=== PATIENT | male | born 1975 | race African-American/Black ===

== ENCOUNTER 2016-12-22 12:27 | Emergency (ER) | payer SELFPAY ==
[~2016-12-22] VITALS: Ht 160 cm; Wt 76.2 kg
[~2016-12-22 12:27] MED LIST: AMLO10TA2 PO; ATOR10TA60 PO; HYDR25TA9 PO; NAPR500T PO; NAPR500T8 PO; TRAM-48 PO; TRAM50TA PO
[2016-12-22] MEDS ORDERED: NAPROXEN 500 MG TABLET PO STA (12:54)
[2016-12-22 12:56] VITALS: BP 149/87
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
[2016-12-22] MEDS ORDERED: HYDROcodone/APAP 5/325MG 1 TAB TABLET PO ONE (13:15)
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
[2016-12-22] MEDS ORDERED: TRAM-48 PO (13:38)
== END 2016-12-22 13:45 | disposition home or self-care (01) ==
LOC: ER 12:27
DX: S93.402A Sprain of unspecified ligament of left ankle, initial encounter (principal); S93.602A Unspecified sprain of left foot, initial encounter; I10 Essential (primary) hypertension; E78.00 Pure hypercholesterolemia, unspecified; W18.39XA Other fall on same level, initial encounter; Y93.89 Activity, other specified; Y92.89 Other specified places as the place of occurrence of the external cause; Y99.8 Other external cause status
CPT/HCPCS: 29515; 73610; 73630; 99284-25

== ENCOUNTER 2017-04-28 21:53 | Emergency (ER) | payer OTHER ==
[~2017-04-28] VITALS: Ht 162.6 cm; Wt 76.2 kg
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
[2017-04-28 22:30] LABS: BASO # 0.1 x10^3/uL (0.0-0.2); BASO % 1 % (0-3); EOS % 1 % (0-3); HEMATOCRIT 42.3 % (39.0-53.0); HEMOGLOBIN 14.5 g/dL (13.0-17.5); LYMPH # 2.1 x10^3/uL (1.0-4.8); LYMPH % 36 % (24-48); MEAN CORPUSCULAR HEMOGLOBIN 31 pg (25-35); MEAN CORPUSCULAR HGB CONC 34 g/dL (31-37); MEAN CORPUSCULAR VOLUME 92 fL (79-100); MONO % 7 % (0-9); NEUT % 56 % (31-73); PLATELET COUNT 289 x10^3/uL (140-400); RED CELL DISTRIBUTION WIDTH 13.1 % (11.5-14.5); WHITE BLOOD COUNT 5.8 x10^3/uL (4.0-11.0)
[2017-04-28] MEDS ORDERED: IV NORMAL SALINE 1000ML BAG 1,000 ML IV ONE (22:30)
[2017-04-28] MEDS ORDERED: diphenhydrAMINE 50 MG/ML VIAL IVP ONE (22:30)
[2017-04-28] MEDS ORDERED: METOCLOPRAMIDE HCL 10 MG/2 ML VIAL. IV ONE (22:30)
[2017-04-28] MEDS ORDERED: LABETALOL 20 MG/4 ML DISP.SYRIN. IVP ONE (22:30)
[2017-04-28 22:44] LABS: CALCIUM 8.7 mg/dL (8.5-10.1); GFR 100.1; POTASSIUM 3.3 mmol/L (3.5-5.1)
[2017-04-28 22:50] LABS: ALBUMIN 3.3 g/dL (3.4-5.0); DIRECT BILIRUBIN 0.1 mg/dL (0.0-0.2); TOTAL BILIRUBIN 0.3 mg/dL (0.2-1.0); TOTAL PROTEIN 7.7 g/dL (6.4-8.2)
[2017-04-28 23:14] LABS: BILIRUBIN,URINE NEGATIVE (NEG); GLUCOSE,URINE NEGATIVE (NEG); NITRITE,URINE NEGATIVE (NEG); PROTEIN,URINE NEGATIVE (NEG-TRACE)
[2017-04-28 23:19] LABS: BACTERIA,URINE 0 /HPF (0-FEW); RBC,URINE 0 /HPF (0-2); SQUAMOUS EPITHELIAL CELL,UR OCC /LPF; WBC,URINE 0 /HPF (0-4)
[2017-04-28 23:29] VITALS: BP 124/81
[2017-04-28] MEDS ORDERED: HYDR25TA9 PO (23:39)
--- NOTE | 2017-04-29 07:01 | EKG ---
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
== END 2017-04-28 23:45 | disposition home or self-care (01) ==
LOC: ER 21:53
DX: R51 Headache (principal); I10 Essential (primary) hypertension; H53.8 Other visual disturbances; E78.00 Pure hypercholesterolemia, unspecified
CPT/HCPCS: 36415; 80048; 80076; 81001; 83690; 84484; 85025; 93005; 96361; 96374; 96375; 99285; J1200; J2765; J3490; J7030

== ENCOUNTER 2017-05-12 00:25 | Emergency (ER) | payer OTHER ==
[~2017-05-12] VITALS: Ht 162.6 cm; Wt 76.2 kg
[2017-05-12 00:48] VITALS: BP 179/109
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
[2017-05-12] MEDS ORDERED: IBUPROFEN 800 MG TABLET. PO ONE (03:00)
--- NOTE | 2017-05-12 08:41 | RAD ---
EXAM: 1. Left ankle 3 views. 2. Left foot 3 views. HISTORY: Fall with left foot/ankle pain. COMPARISON: 12/22/2016. FINDINGS: There are changes of internal fixation of a chronic healed distal tibial fracture with antegrade intramedullary nail. The nail is fixed by 2 screws distally, both of which are fractured. No fragments project within the distal leg. There is likely a chronic fracture deformity of the medial malleolus. No acute fractures are seen about the ankle. Joint spaces and alignment are maintained. There are chronic fracture deformities of the ventricular and cuboid. 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 There is mild pes planus. Another chronic fracture deformity involves the 4th metatarsal neck. No acute fractures are seen. IMPRESSION: 1. No acute fracture. 2. Chronic fracture deformities of the distal tibia, medial malleolus, and mid foot/hindfoot. Associated mid foot/hindfoot posttraumatic osteoarthritis.
== END 2017-05-12 03:20 | disposition home or self-care (01) ==
LOC: ER 00:25
DX: S93.602A Unspecified sprain of left foot, initial encounter (principal); I10 Essential (primary) hypertension; E78.00 Pure hypercholesterolemia, unspecified; X58.XXXA Exposure to other specified factors, initial encounter; Y93.89 Activity, other specified; Y92.89 Other specified places as the place of occurrence of the external cause; Y99.8 Other external cause status
CPT/HCPCS: 73610; 73630; 99284

== ENCOUNTER 2017-05-26 02:18 | Emergency (ER) | payer OTHER ==
[~2017-05-26] VITALS: Ht 162.6 cm; Wt 72.6 kg
[~2017-05-26 02:18] MED LIST changes: +NAPR-683 PO; -NAPR500T PO
[2017-05-26 02:30] VITALS: BP 142/89
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
[2017-05-26] MEDS ORDERED: TRAM50TA PO (03:38)
== END 2017-05-26 03:50 | disposition home or self-care (01) ==
LOC: ER 02:18
DX: M25.572 Pain in left ankle and joints of left foot (principal); G89.29 Other chronic pain; Z98.890 Other specified postprocedural states
CPT/HCPCS: 99283

== ENCOUNTER 2018-10-15 07:18 | Emergency (ER) | payer OTHER ==
[~2018-10-15] VITALS: Ht 160 cm; Wt 78.0 kg
[~2018-10-15 07:18] MED LIST changes: -AMLO10TA2 PO; +AMLO10TA8 PO; +HYDR-2145 PO; -HYDR25TA9 PO
[2018-10-15 07:55] VITALS: BP 169/119
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
--- NOTE | 2018-10-15 08:54 | RAD ---
ANKLE LEFT 3V, FOOT LEFT 3V Clinical Indication: ROLLED ANKLE THIS MORNING. LEFT ANKLE, FOOT PAIN Comparison: Left foot, 3 views May 08, 2018. Left ankle, 3 views, May 12, 2017. Findings: Old fracture deformities of the navicular and cuboid redemonstrated. Question old fracture deformity at the base of the third proximal phalanx. No dorsal soft tissue swelling. No acute fracture is identified. Mineralization is normal. Joint spaces are maintained. Redemonstrated intramedullary low of the tibia. The 2 distal locking screws are fractured, unchanged. There are metallic fragments in the soft tissues in the region of the distal tibia. Cortical thickening of the distal tibia is stable. There is no soft tissue swelling. The proximal intramedullary low is near the lateral tibial plateau. There are 2 proximal locking screws. The ankle mortise is intact. There is no acute fracture. No ankle joint effusion is seen. IMPRESSION: No acute fracture or dislocation. Electronically signed by: Hernando Guillermo MD (10/15/2018 8:51 AM) [id number]
== END 2018-10-15 09:30 | disposition home or self-care (01) ==
LOC: ER 07:18
DX: M25.572 Pain in left ankle and joints of left foot (principal); G89.11 Acute pain due to trauma; I10 Essential (primary) hypertension; Z98.890 Other specified postprocedural states; X50.9XXA Other and unspecified overexertion or strenuous movements or postures, initial encounter; Y93.89 Activity, other specified; Y92.89 Other specified places as the place of occurrence of the external cause; Y99.8 Other external cause status
CPT/HCPCS: 73610; 73630; 99284

== ENCOUNTER 2019-04-17 15:44 | Emergency (ER) | payer OTHER ==
[~2019-04-17] VITALS: Ht 162.6 cm; Wt 76.2 kg
[2019-04-17 15:56] VITALS: BP 170/112
[2019-04-17] MEDS ORDERED: BACI28.34 TP (16:12)
[2019-04-17] MEDS ORDERED: CEPH-264 PO (16:12)
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
[2019-04-17] MEDS ORDERED: LIDOCAINE 1% Multi-Dose 20 ML VIAL. INJ ONE (16:15)
== END 2019-04-17 16:38 | disposition home or self-care (01) ==
LOC: ER 15:44
DX: L03.011 Cellulitis of right finger (principal); I10 Essential (primary) hypertension
CPT/HCPCS: 10060; 99284